=== PATIENT | female | born 1990 | race Caucasian/White ===

== ENCOUNTER → 2019-12-23 11:38 | Outpatient (CLI) | payer OTHER, SELFPAY ==
[2019-12-23 12:48] LABS: Influenza A - CEPHEID Flu A NEGATIVE (NEGATIVE); Influenza B - CEPHEID Flu B NEGATIVE (NEGATIVE)
[2019-12-31 06:26] LABS: COVID19 Sendout Not Detected (Not Detected)
== END ==
PROVIDERS: Visit Provider Nurse Practitioner
DX: R05 Cough (principal); R68.89 Other general symptoms and signs; R50.9 Fever, unspecified
CPT/HCPCS: 87502; 87635

== ENCOUNTER → 2021-09-09 17:25 | Outpatient (CLI) | payer SELFPAY | PROVIDERS: Referring Provider Physician Assistant; Visit Provider Physician Assistant | DX: N39.0 Urinary tract infection, site not specified (principal) | CPT/HCPCS: 87086 ==

== ENCOUNTER 2021-10-05 08:12 | Emergency (ER) | payer SELFPAY ==
[2021-10-05] VITALS (7 sets, daily range): BP systolic 118–133; BP diastolic 74–92; PULSE 60–114; RESP 18; O2SAT 98–99
--- NOTE | 2021-10-05 08:27 | DI.US.S_ITS ---
PROCEDURE: US ABDOMEN LIMITED INDICATIONS: RUQ pain, radiation to back TECHNIQUE: Real-time focused scanning was performed of the abdomen, with image documentation. COMPARISON: None. FINDINGS: The liver has a normal size and echotexture. No mass or intrahepatic biliary ductal dilatation. The gallbladder is normal with no stones or sludge. No wall thickening or pericholecystic fluid. The biliary tree is normal. The common bile duct measures 3.3 mm. The pancreas is only partially visualized due to overlying bowel gas. The visualized portion appears normal. IMPRESSION: No acute abnormality. Dictated by: Edward Carlisle M.D. on 10/05/2021 at 8:39 Approved by: Edward Carlisle M.D. on 10/05/2021 at 8:40
--- NOTE | 2021-10-05 08:27 | ED.ABDPAIN ---
HPI - Abdominal Pain General Chief Complaint: Abdominal Pain Stated Complaint: Pain in right side abdomen Time Seen by Provider: 10/05/21 08:13 Source: patient Mode of arrival: Ambulatory History of Present Illness HPI narrative: 30-year-old female nonsmoker with noncontributory medical history presents with her significant other and a chief complaint of with started with urinary frequency but is turned into some right lower quadrant pain as well as right upper quadrant pain and right flank pain over the past few weeks. She denies any vaginal bleeding or discharge. She denies nausea, vomiting or diarrhea. She denies any change in her appetite. She states she had been seen in the walk-in clinic at the end of August and had a urine which and up showing Gardnerella. She took a prescription course of Flagyl and has little to no change in her symptoms. She states that the pain in her right lower quadrant worsens with motion and improves with rest. She had also followed up with a visit to another urgent care in [place], without any specific findings or treatments reported. Her LMP was about a month ago. Related Data Allergies Allergy/AdvReac Type Severity Reaction Status Date / Time No Known Drug Allergies Allergy Verified 12/23/19 11:37 Patient History Social History Smoking Status: Never smoker Smoking Status: Never smoker alcohol intake frequency: a few times a month Substance Use Type: does not use Exam Narrative Exam Narrative: GENERAL: [30] year old patient appears stated age. Well-developed patient, in mild distress. HEAD: Atraumatic. Normocephalic. EYES: Pupils equal round and reactive. Extraocular motions intact. No scleral icterus. No injection or drainage. ENT: Nose without bleeding, purulent drainage. Throat without erythema, tonsillar hypertrophy or exudate. Airway patent. NECK: Trachea midline. Non tender CARDIOVASCULAR: Regular rate and rhythm without murmurs, gallops, or rubs. RESPIRATORY: Clear to auscultation. Breath sounds equal bilaterally. No wheezes, rales, or rhonchi. GASTROINTESTINAL: Abdomen soft, tender in the right lower quadrant with positive psoas. ALso, painful in RUQ. Nondistended. No CVA tenderness EXTREMITIES: No edema or joint tenderness. BACK: Nontender without deformity or crepitance. No flank tenderness. NEURO: AOx3. SKIN: No rash or erythema of visible areas Initial Vital Signs Initial Vital Signs: Vital Signs Pulse Rate 114 H 10/05/21 08:20 Respiratory Rate 18 10/05/21 08:20 Blood Pressure 133/92 H 10/05/21 08:20 Pulse Oximetry 98 10/05/21 08:20 Course Orders Ordered: ED Orders 10/05/21 08:27 US abdomen limited Stat 10/05/21 08:55 Complete Blood Count AUTO DIFF Stat Comprehensive Metabolic Panel Stat Lipase Stat 10/05/21 09:32 US pelvic complete Stat Discontinued Medications Sodium Chloride (Normal Saline 0.9%) 1,000 mls @ 1,000 mls/hr IV BOLUS ONE Stop: 10/05/21 09:26 Last Infusion: 10/05/21 10:30 Dose: 0 mls/hr Documented by: Admin: 10/05/21 09:16 Dose: 1,000 mls/hr Documented by: ARNALDO Vital Signs Vital signs: Vital Signs - 8 hr 10/05/21 08:20 10/05/21 08:48 10/05/21 09:00 Pulse Rate 112 H 60 81 Respiratory Rate 18 Blood Pressure 133/92 H Pulse Oximetry 98 98 99 10/05/21 09:30 10/05/21 09:35 10/05/21 10:00 Pulse Rate 87 84 82 Respiratory Rate Blood Pressure 120/77 124/74 Pulse Oximetry 99 98 98 10/05/21 10:30 Pulse Rate 95 H Respiratory Rate Blood Pressure 118/79 Pulse Oximetry 99 MDM - Abdominal Pain Lab Data Result diagrams: 10/05/21 08:55 10/05/21 08:55 Labs: Lab Results 10/05/21 10/05/21 Range/Units 08:55 08:55 WBC 6.1 (4.5-11.0) X10^3/uL RBC 4.36 (4.0-5.2) X10^6/uL Hgb 14.6 (12.0-16.0) g/dL Hct 41.4 (36-46) % MCV 95.1 (80-100) fL MCH 33.4 (26-34) PG MCHC 35.2 (30-36) % RDW 12.2 (11.6-14.8) % Plt Count 192 (150-400) X10^3/uL Neut % (Auto) 57.6 (50-75) % Lymph % (Auto) 30.9 (25-40) % [place] % (Auto) 9.7 (3-14) % Eos % (Auto) 1.1 L (2-4) % Baso % (Auto) 0.7 (0-2) % Neut # (Auto) 3500 (4529-7745) /uL Lymph # (Auto) 1900 (4622-2312) /uL [place] # (Auto) 600 (0-900) /uL Eos # (Auto) 100 (0-450) /uL Baso # (Auto) 0 (0-100) /uL Sodium 135 L (137-145) mmol/L Potassium 4.1 (3.4-5.1) mmol/L Chloride 105 (98-107) mmol/L Carbon Dioxide 24 (22-32) mmol/L BUN 13 (7-17) mg/dL Creatinine 0.67 (0.52-1.04) mg/dL Estimated GFR > 60.0 (>60) mL/min BUN/Creatinine Ratio 19.4 (6-22) Glucose 87 (70-100) mg/dL Calcium 9.1 (8.4-10.2) mg/dL Total Bilirubin 0.6 (0.2-1.3) mg/dL AST 25 (14-36) IU/L ALT 15 (<35) IU/L Alkaline Phosphatase 39 (38-126) U/L Total Protein 7.4 (6.3-8.2) g/dL Albumin 4.5 (3.5-5.0) g/dL Globulin 2.9 (1.7-4.1) g/dL Albumin/Globulin Ratio 1.6 (1.0-2.8) Lipase 30 (23-300) U/L Point of care testing: Point of Care Testing Test Results Negative Urine Dip Bedside Urine Glucose Negative Bedside Urine Bilirubin - Negative Bedside Urine Ketone +/- 5 Urine Specific [place] 1.015 Bedside Urine Protein +/- 15 Bedside Urine Urobilinogen 0.2 Bedside Urine Nitrite - Negative Bedside Urine Leukocytes - Negative Esterase Imaging Data US - abdomen: Radiologist's Impression: [address] [address] Ultrasound Report Signed Patient: Deyanira Rhodes MR#: [id number] : 1990 Acct:[id number] Age/Sex: 30 / F Date of Service: 10/05/21 Loc: ED Accession Number: [id number] ?? Procedure: US abdomen limited Ordering Provider: Eric Jj D.O. PROCEDURE: US ABDOMEN LIMITED ? INDICATIONS:? RUQ pain, radiation to back ? TECHNIQUE:? Real-time focused scanning was performed of the abdomen, with image documentation.? ? COMPARISON:? None. ? FINDINGS:? ? The liver has a normal size and echotexture.? No mass or intrahepatic biliary ductal dilatation. ? The gallbladder is normal with no stones or sludge.? No wall thickening or pericholecystic fluid. ? The biliary tree is normal.? The common bile duct measures 3.3 mm. ? The pancreas is only partially visualized due to overlying bowel gas.? The visualized portion appears normal. ? IMPRESSION:? No acute abnormality. ? ? Dictated by: Edward Carilsle M.D. on 10/05/2021 at 8:39 ? ? Approved by: Edward Carlisle M.D. on 10/05/2021 at 8:40? Discharge Plan Departure Patient Disposition: Home Clinical Impression: Ovarian cyst Instructions: DI for Ovarian Cyst Activity Restrictions/Additional Instructions: *You have been diagnosed with [right lower quadrant pain from ovarian cyst. Otherwise your history, physical exam, labs and imaging are very reassuring. This ovarian cyst is about 6 cm and will need to be followed with a repeat ultrasound in 6-12 weeks *What to do: *Please continue to take your regular medications as directed. [ ] New medication prescriptions sent to your pharmacy: [ ] [ ] New medication written as a paper prescription [ x] No new medications given *Please follow up with set making machine operator in 2-3 days, call for an appointment. Let them know you were seen in the Emergency Department and that we ask that you be seen in follow up. We will electronically transmit a record of today's note if your PCP is in our system *If you do not have a primary care provider please contact the [facility] Resource line at [phone]. They will ask some questions about your medical history and help get you set up with a doctor in the community. *Return to Emergency Department if you should have any new, worsening or concerning symptoms, such as [fever greater than 101 F, shaking chills, worsening pain, persistent vomiting or other bothersome symptoms] Referrals: Nahed Cruz MD [Physician] - Miscellaneous,MD Ramon [Primary Care Provider] -
[2021-10-05 09:10] LABS: Add Manual Diff / Slide Review NO; Basophils Absolute Auto 0 /uL (0-100); Basophils Percent Auto 0.7 % (0-2); Eosinophils Absolute Auto 100 /uL (0-450); Eosinophils Percent Auto 1.1 % (2-4); Hematocrit 41.4 % (36-46); Hemoglobin 14.6 g/dL (12.0-16.0); Lymphocytes Absolute Auto 1900 /uL (1100-4500); Lymphocytes Percent Auto 30.9 % (25-40); Mean Corpuscular HGB Conc 35.2 % (30-36); Mean Corpuscular Hemoglobin 33.4 PG (26-34); Mean Corpuscular Volume 95.1 fL (80-100); Monocytes Absolute Auto 600 /uL (0-900); Monocytes Percent Auto 9.7 % (3-14); Neutrophils Absolute Auto 3500 /uL (1500-7000); Neutrophils Percent Auto 57.6 % (50-75); Platelet Count 192 X10^3/uL (150-400); Red Blood Cell Count 4.36 X10^6/uL (4.0-5.2); Red Cell Distribution Width 12.2 % (11.6-14.8); White Blood Cell Count 6.1 X10^3/uL (4.5-11.0)
[2021-10-05] MEDS: SODIUM CHLORIDE 0.9% 1,000 ML 1000 ML IV (09:16)
[2021-10-05 09:19] LABS: Alanine Aminotransferase 15 IU/L (<35); Albumin 4.5 g/dL (3.5-5.0); Albumin Globulin Ratio 1.6 (1.0-2.8); Alkaline Phosphatase 39 U/L (38-126); Aspartate Aminotransferase 25 IU/L (14-36); BUN Creatinine Ratio 19.4 (6-22); Bilirubin Total 0.6 mg/dL (0.2-1.3); Blood Urea Nitrogen 13 mg/dL (7-17); Calcium 9.1 mg/dL (8.4-10.2); Carbon Dioxide 24 mmol/L (22-32); Chloride 105 mmol/L (98-107); Estimated Glomerular Filt Rate > 60.0 mL/min (>60); Globulin 2.9 g/dL (1.7-4.1); Glucose 87 mg/dL (70-100); HEMOLYSIS 23 (0-50); Lipase 30 U/L (23-300); Potassium 4.1 mmol/L (3.4-5.1); Sodium 135 mmol/L (137-145); Total Protein 7.4 g/dL (6.3-8.2)
--- NOTE | 2021-10-05 09:32 | DI.US.S_ITS ---
PROCEDURE: US PELVIC COMPLETE INDICATIONS: RLQ pain TECHNIQUE: Real-time scanning was performed of the pelvic organs, with image documentation. Additional endovaginal scanning was necessary due to incomplete visualization of the adnexal and endometrial structures by transabdominal scanning. COMPARISON: None. FINDINGS: Uterus: Uterus is anteverted and normal in size at 9.5 x 4.0 x 4.8 cm. The myometrium is homogeneous. The endometrium measures 13.4 mm combined thickness. Ovaries: The right ovary measures 6.0 x 4.6 x 5.4 cm. The left ovary measures 2.8 x 2.1 x 1.5 cm. The right ovary has a 6.0 x 4.2 x 5.2 cm complex cyst. Less than 12 follicles can be seen in each ovary. No adnexal masses are seen. Other: No pathologic free abdominal or pelvic fluid. IMPRESSION: Complex 6.0 x 4.2 x 5.2 cm right ovarian cyst, probably a hemorrhagic cyst. Given large size recommend 6-12 week ultrasound follow-up. We strive to produce accurate, complete, and clear reports of imaging services. To assist us in improving patient care, this report was composed using standard report templates and voice recognition software. Therefore, it may contain abnormal punctuation, insertions and/or omissions. Occasional wrong-word or sound-alike substitutions may occur. Though we review the report and make efforts to correct it, we do recommend that the report be read carefully in proper context to recognize any text inaccuracies. Dictated by: Edward Carlisle M.D. on 10/05/2021 at 8:40 Approved by: Edward Carlisle M.D. on 10/05/2021 at 8:48
== END 2021-10-05 10:51 | disposition home or self-care (01) ==
PROVIDERS: Emergency Provider Emergency Medicine
DX: N83.201 Unspecified ovarian cyst, right side (principal)
CPT/HCPCS: 36415; 76705; 76830; 76856; 80053; 81003; 81025; 83690; 85025; 96360; 99284

== ENCOUNTER → 2022-01-21 17:25 | Outpatient (CLI) | payer OTHER, SELFPAY | PROVIDERS: Visit Provider Physician Assistant | DX: J02.9 Acute pharyngitis, unspecified (principal) | CPT/HCPCS: 87070 ==

== ENCOUNTER 2022-06-07 22:28 | Emergency (ER) | payer OTHER, SELFPAY ==
[2022-06-07 22:35] VITALS: BP 149/90; PULSE 80; RESP 18; TEMP 36.6; O2SAT 98; BMI 22.4
[2022-06-07 23:23] LABS: Add Manual Diff / Slide Review NO; Basophils Absolute Auto 0 /uL (0-100); Basophils Percent Auto 0.3 % (0-2); Eosinophils Absolute Auto 100 /uL (0-450); Eosinophils Percent Auto 0.9 % (2-4); Hematocrit 40.1 % (36-46); Hemoglobin 14.1 g/dL (12.0-16.0); Lymphocytes Absolute Auto 3600 /uL (1100-4500); Lymphocytes Percent Auto 45.1 % (25-40); Mean Corpuscular HGB Conc 35.1 % (30-36); Mean Corpuscular Hemoglobin 33.2 PG (26-34); Mean Corpuscular Volume 94.6 fL (80-100); Monocytes Absolute Auto 700 /uL (0-900); Monocytes Percent Auto 8.8 % (3-14); Neutrophils Absolute Auto 3600 /uL (1500-7000); Neutrophils Percent Auto 44.9 % (50-75); Platelet Count 246 X10^3/uL (150-400); Red Blood Cell Count 4.24 X10^6/uL (4.0-5.2); Red Cell Distribution Width 12.3 % (11.6-14.8)
[2022-06-07 23:30] LABS: Alanine Aminotransferase 17 IU/L (<35); Albumin 4.7 g/dL (3.5-5.0); Albumin Globulin Ratio 1.5 (1.0-2.8); Alkaline Phosphatase 54 U/L (38-126); Aspartate Aminotransferase 30 IU/L (14-36); BUN Creatinine Ratio 21.1 (6-22); Bilirubin Total 0.6 mg/dL (0.2-1.3); Blood Urea Nitrogen 15 mg/dL (7-17); Carbon Dioxide 26 mmol/L (22-32); Chloride 104 mmol/L (98-107); Estimated Glomerular Filt Rate > 60 mL/min (>60); Globulin 3.2 g/dL (1.7-4.1); Glucose 111 mg/dL (70-100); Lipase 52 U/L (23-300); Potassium 4.1 mmol/L (3.4-5.1); Sodium 136 mmol/L (137-145); Total Protein 7.9 g/dL (6.3-8.2)
[2022-06-07 23:33] LABS: HEMOLYSIS 62 (0-50)
--- NOTE | 2022-06-07 23:37 | ED.ABDPAIN ---
HPI - Abdominal Pain General Chief Complaint: Abdominal Pain Stated Complaint: Rt side pain Time Seen by Provider: 06/07/22 22:32 Source: patient Mode of arrival: Ambulatory History of Present Illness HPI narrative: 31-year-old female nonsmoker with history of a large right-sided ovarian cyst presents with her in the chief complaint of at least a few days of increasing severity and frequency of both upper and lower right-sided abdominal pain. She denies obvious provocation or palliation or radiation of her symptoms. She states that there is certainly no linked with eating or drinking but perhaps a change related to position, in that symptoms might be worse when sitting up and improves when lying down. She denies fever chills. She is not dizzy nor weak or lightheaded. She is had no nausea, vomiting nor change in bowels. She denies dysuria, frequency or urgency and has had no vaginal bleeding or discharge. She had been seen by myself in September with a chief complaint of abdominal pain and was found to have a large right ovarian cyst that was followed and has been determined to resolve. She states the symptoms today feel much different. Related Data Home Medications Medication Instructions Recorded Confirmed No Known Home Medications 01/21/22 01/21/22 Allergies Allergy/AdvReac Type Severity Reaction Status Date / Time No Known Drug Allergies Allergy Verified 01/21/22 17:33 Review of Systems Review of Systems Narrative: GENERAL: Denies chills, fatigue, malaise, fever, sweats. HEENT: Denies sinus pain, ear pain, sore throat, difficulty swallowing, dizziness. RESPIRATORY: Denies dyspnea, cough, wheezing, hemoptysis, sputum. CARDIOVASCULAR: Denies chest pain, palpitations, orthopnea, edema, GASTROINTESTINAL: See HPI : See HPI MUSCULOSKELETAL: denies weakness, joint pain, or bony pain SKIN: Denies rash, skin lesions, or other NEUROLOGIC: Denies weakness, headache, numbness, change in speech, confusion, seizures, incoordination. PSYCHIATRIC: No concerning psychosocial issues. 12 point review of systems is negative except for those stated above Patient History Social History Smoking Status: Never smoker Smoking Status: Never smoker alcohol intake frequency: a few times a month Substance Use Type: does not use Exam Narrative Exam Narrative: GENERAL: [31] year old patient appears stated age. Well-developed patient, in mild distress. HEAD: Atraumatic. Normocephalic. EYES: Pupils equal round and reactive. Extraocular motions intact. No scleral icterus. No injection or drainage. ENT: Nose without bleeding, purulent drainage. Throat without erythema, tonsillar hypertrophy or exudate. Airway patent. NECK: Trachea midline. Non tender CARDIOVASCULAR: Regular rate and rhythm without murmurs, gallops, or rubs. RESPIRATORY: Clear to auscultation. Breath sounds equal bilaterally. No wheezes, rales, or rhonchi. GASTROINTESTINAL: Abdomen soft, right lower quadrant pain, nondistended. EXTREMITIES: No edema or joint tenderness. BACK: Nontender without deformity or crepitance. No flank tenderness. NEURO: AOx3. SKIN: No rash or erythema of visible areas Initial Vital Signs Initial Vital Signs: Vital Signs Temperature 98 F 06/07/22 22:35 Pulse Rate 80 06/07/22 22:35 Respiratory Rate 18 06/07/22 22:35 Blood Pressure 149/90 H 06/07/22 22:35 Pulse Oximetry 98 06/07/22 22:35 Oxygen Delivery Method 06/07/22 22:35 Course Orders Ordered: ED Orders 06/07/22 22:45 Complete Blood Count AUTO DIFF Stat Comprehensive Metabolic Panel Stat Lipase Stat 06/07/22 23:03 EKG-12 Lead Stat 06/07/22 23:46 CT abdomen pelvis w con Stat Vital Signs Vital signs: Vital Signs - 8 hr 06/07/22 22:35 06/08/22 00:57 Temperature 98 F Pulse Rate 80 87 Respiratory Rate 18 18 Blood Pressure 149/90 H 114/92 H Pulse Oximetry 98 98 Oxygen Delivery Method Room Air Room Air MDM - Abdominal Pain Lab Data Result diagrams: 06/07/22 22:45 06/07/22 22:45 Labs: Lab Results 06/07/22 06/07/22 Range/Units 22:45 22:45 WBC 8.0 (4.5-11.0) X10^3/uL RBC 4.24 (4.0-5.2) X10^6/uL Hgb 14.1 (12.0-16.0) g/dL Hct 40.1 (36-46) % MCV 94.6 (80-100) fL MCH 33.2 (26-34) PG MCHC 35.1 (30-36) % RDW 12.3 (11.6-14.8) % Plt Count 246 (150-400) X10^3/uL Neut % (Auto) 44.9 L (50-75) % Lymph % (Auto) 45.1 H (25-40) % [place] % (Auto) 8.8 (3-14) % Eos % (Auto) 0.9 L (2-4) % Baso % (Auto) 0.3 (0-2) % Neut # (Auto) 3600 (9901-8192) /uL Lymph # (Auto) 3600 (1417-3640) /uL [place] # (Auto) 700 (0-900) /uL Eos # (Auto) 100 (0-450) /uL Baso # (Auto) 0 (0-100) /uL Sodium 136 L (137-145) mmol/L Potassium 4.1 (3.4-5.1) mmol/L Chloride 104 (98-107) mmol/L Carbon Dioxide 26 (22-32) mmol/L BUN 15 (7-17) mg/dL Creatinine 0.71 (0.52-1.04) mg/dL Estimated GFR > 60 (>60) mL/min BUN/Creatinine Ratio 21.1 (6-22) Glucose 111 H (70-100) mg/dL Calcium 9.0 (8.4-10.2) mg/dL Total Bilirubin 0.6 (0.2-1.3) mg/dL AST 30 (14-36) IU/L ALT 17 (<35) IU/L Alkaline Phosphatase 54 (38-126) U/L Total Protein 7.9 (6.3-8.2) g/dL Albumin 4.7 (3.5-5.0) g/dL Globulin 3.2 (1.7-4.1) g/dL Albumin/Globulin Ratio 1.5 (1.0-2.8) Lipase 52 (23-300) U/L Point of care testing: Point of Care Testing Test Results Negative Urine Dip Bedside Urine Glucose Negative Bedside Urine Bilirubin - Negative Bedside Urine Ketone - Negative Urine Specific [place] 1.010 Bedside Urine Occult Blood - Negative Bedside Urine pH 6.0 Bedside Urine Protein - Negative Bedside Urine Urobilinogen 0.2 Bedside Urine Nitrite - Negative Bedside Urine Leukocytes - Negative Esterase Imaging Data CT scan - abdomen/pelvis: Radiologist's Impression: Close Abdomen/Pelvis CT (Signed) Sukhi Centeno - 06/07/22 Launch?[address] [address] [address] Scan Report Signed Patient: Deyanira Rhodes MR#: [id number] : 1990 Acct:[id number] Age/Sex: 31 / F Date of Service: 06/07/22 Loc: ED Accession Number: [id number] ?? Procedure: CT abdomen pelvis w con Ordering Provider: Eric Jj D.O. PROCEDURE:? CT ABDOMEN PELVIS W CON ? INDICATIONS:? severe right sided pain ? TECHNIQUE:? After the administration of intravenous contrast, axial sections acquired from the lung bases to the pubic symphysis.? Coronal and sagittal reformats were performed.? For radiation dose reduction, the following was used:? automated exposure control, adjustment of mA and/or kV according to patient size.? ? COMPARISON:? None. ? FINDINGS:? Image quality:? Excellent.? ? Lung bases:? Unremarkable. Heart:? No significant findings. ? ABDOMEN: Liver:? Unremarkable.? ? Gallbladder:? Unremarkable.? ? Biliary ducts:? Unremarkable.? ? Pancreas:? Unremarkable.? ? Spleen:? Unremarkable.? ? Adrenal Glands:? Unremarkable.? ? Kidneys and Ureters:? Unremarkable.? ? ? Stomach and Bowel:? Stomach, small bowel loops, and colon are unremarkable.? Peritoneum:? No abnormal intraperitoneal fluid.? No free air.? ? Ventral Wall: ? No hernias.? Abdominal Nodes:? No retroperitoneal or mesenteric adenopathy by size criteria.? Vessels:? Aorta and inferior vena cava are normal in size.? ? PELVIS: Pelvic Organs:? Unremarkable.? ? Bladder:? Unremarkable.? ? Pelvic Nodes: No enlarged lymph nodes.? Miscellaneous: No hernias are seen. ? ? ? Bones:? Unremarkable.? IMPRESSION:? A source of right-sided pain is not identified.? No urinary tract stone or inflammation is seen.? No CT evidence of appendicitis or other inflammatory process is found. ? ? Dictated by: Sukhi Centeno M.D. on 06/08/2022 at 0:26 ? ? Approved by: Sukhi Centeno M.D. on 06/08/2022 at 0:29 ? Discharge Plan Departure Patient Disposition: Home Clinical Impression: Abdominal pain in female Instructions: DI for Abdominal Pain-Adult Activity Restrictions/Additional Instructions: *You have been diagnosed with [abdominal pain] * As we discussed your history and physical exam as well as labs and imaging are very reassuring. There is no evidence of any severe diagnoses that would require a specific or immediate intervention. *What to do: *Please continue to take your regular medications as directed. *Please follow up with your primary care provider in 2-3 days, call for an appointment. Let them know you were seen in the Emergency Department and that we ask that you be seen in follow up. We will electronically transmit a record of today's note if your PCP is in our system *Please consider a clear liquid diet for the next 24-48 hours and then slowly advance to regular as tolerated. Also, try to avoid alcohol, nicotine, caffeine, spicy, acidic or fatty foods as this may worsen your symptoms *If you do not have a primary care provider please contact the [facility] Resource line at [phone]. They will ask some questions about your medical history and help get you set up with a doctor in the community. *Return to Emergency Department if you should have any new, worsening or concerning symptoms, such as [fever greater than 101 F, shaking chills, worsening pain, persistent vomiting or other bothersome symptoms] Prescriptions: No Action No Known Home Medications Referrals: Mismarilyn,DoctorMD [Primary Care Provider] - Visit Report Forms: Patient Portal/API
--- NOTE | 2022-06-07 23:46 | DI.CT.S_ITS ---
PROCEDURE: CT ABDOMEN PELVIS W CON INDICATIONS: severe right sided pain TECHNIQUE: After the administration of intravenous contrast, axial sections acquired from the lung bases to the pubic symphysis. Coronal and sagittal reformats were performed. For radiation dose reduction, the following was used: automated exposure control, adjustment of mA and/or kV according to patient size. COMPARISON: None. FINDINGS: Image quality: Excellent. Lung bases: Unremarkable. Heart: No significant findings. ABDOMEN: Liver: Unremarkable. Gallbladder: Unremarkable. Biliary ducts: Unremarkable. Pancreas: Unremarkable. Spleen: Unremarkable. Adrenal Glands: Unremarkable. Kidneys and Ureters: Unremarkable. Stomach and Bowel: Stomach, small bowel loops, and colon are unremarkable. Peritoneum: No abnormal intraperitoneal fluid. No free air. Ventral Wall: No hernias. Abdominal Nodes: No retroperitoneal or mesenteric adenopathy by size criteria. Vessels: Aorta and inferior vena cava are normal in size. PELVIS: Pelvic Organs: Unremarkable. Bladder: Unremarkable. Pelvic Nodes: No enlarged lymph nodes. Miscellaneous: No hernias are seen. Bones: Unremarkable. IMPRESSION: A source of right-sided pain is not identified. No urinary tract stone or inflammation is seen. No CT evidence of appendicitis or other inflammatory process is found. Dictated by: Sukhi Centeno M.D. on 06/08/2022 at 0:26 Approved by: Sukhi Centeno M.D. on 06/08/2022 at 0:29
[2022-06-08 00:57] VITALS: BP 114/92; PULSE 87; RESP 18; O2SAT 98
== END 2022-06-08 01:22 | disposition home or self-care (01) ==
PROVIDERS: Emergency Provider Emergency Medicine
DX: R10.9 Unspecified abdominal pain (principal)
CPT/HCPCS: 36415; 74177; 80053; 81003; 81025; 83690; 85025; 93005; 99284; Q9967